=== PATIENT | male | born 1985 | race Caucasian/White ===

== ENCOUNTER 2018-02-23 03:47 | Observation (INO) | payer MEDICAID ==
[~2018-02-23] VITALS: Ht 188 cm; Wt 127.0 kg
[2018-02-23 03:50] VITALS: BP 137/88; PULSE 76; RESP 18; TEMP 98.3; O2SAT 99
[2018-02-23] MEDS ORDERED: ASPIRIN 81 MG CHEW TAB PO ONE (04:15)
[2018-02-23] MEDS ORDERED: SODIUM CHLORIDE 0.9% FLUSH 10 ML FLUSH IVF PRN (04:15)
[2018-02-23] MEDS ORDERED: NITROGLYCERIN 0.4 MG SL 25 TABS/BTL SL ONE (04:15)
[2018-02-23 04:18] VITALS: BP 134/82; PULSE 74; RESP 15; RESP 18; O2SAT 96
[2018-02-23 04:20] VITALS: BP 135/81; PULSE 73; RESP 15; O2SAT 96
--- NOTE | 2018-02-23 04:20 | PD ---
HPI Chief Complaint: Chest Pain Time Seen by Provider: 04:08 Travel History International Travel<30 days: No Contact w/Intl Traveler<30days: No Traveled to known affect area: No History of Present Illness HPI The patient is a 33 year old female who presents to the [facility] emergency department with a history of chest pain that awoke him from sound sleep 8 out of 10 prior to arrival and now is a 5 out of 10. The pain is a cramping sensation in the left side of his chest that is associated with the same pain in his back. He denies having any other radiation of pain. He denies having any nausea or vomiting. He reports that he has had diaphoresis and shortness of breath associated with this. He denies having any cough or congestion. He denies having any indigestion or acid reflux symptoms. He reports a prior history of hypertension, however he has not currently on any medications for this. He denies any known history of hyperlipidemia or diabetes mellitus. He denies having any family history of heart disease. He has a prior history of smoking and quit 2 years ago and now vapes. On review of systems otherwise, the patient denies having any known recent fevers, congestion, neck pain, abdominal pain,diarrhea, urinary symptoms, or neurologic symptoms. [facility] Past Medical History Narrative Medical The patient's past medical history is significant for hypertension Asthma: Yes (CHILDHOOD) Anxiety: Yes Diminished Hearing: No Hypertension: Yes Immunizations Current: Yes Past Surgical History Narrative Surgical The patient's past surgical history is significant for sinus surgery and appendectomy. Appendectomy: Yes Social History Alcohol Use: Yes (rarely) Tobacco Use: Yes (vapes) Substance Use: No Allergies-Medications (Allergen,Severity, Reaction): Coded Allergies: No Known Allergies (Unverified , 02/23/18) Reported Meds & Prescriptions Reported Meds & Active Scripts Active No Active Prescriptions or Reported Medications Review of Systems Except as stated in HPI: all other systems reviewed are Neg General / Constitutional: No: Fever Eyes: No: Visual changes HENT: No: Headaches, Congestion Cardiovascular: Positive: Chest Pain or Discomfort, Diaphoresis, Dyspnea on exertion Respiratory: Positive: Shortness of Breath, No: Cough Gastrointestinal: No: Nausea, Vomiting, Diarrhea, Abdominal Pain, Indigestion, Loss of Appetite Genitourinary: No: Dysuria Musculoskeletal: No: Pain Skin: No Rash Neurologic: No: Weakness Psychiatric: No: Depression Endocrine: No: Polydipsia Hematologic/Lymphatic: No: Easy Bruising Physical Exam Narrative General: The patient is a well-developed well-nourished male in no acute distress. Head and Neck exam: Head is normocephalic atraumatic. Eyes: EOMI, pupils are equal round and reactive to light. Nose: Midline septum with pink mucous membranes Mouth: Dentition unremarkable. Moist mucus membranes. Posterior oropharynx is not erythematous. No tonsillar hypertrophy. Uvula midline. Airway patent. Neck: No palpable lymphadenopathy. No nuchal rigidity. No thyromegaly. Cardiovascular: Regular rate and rhythm without murmurs, gallops, or rubs. No pulse deficit to the extremities on simultaneous auscultation and palpation of his radial artery. Lungs: Clear to auscultation bilaterally. No wheezes, rhonchi, or rales. Abdomen: Soft, without tenderness to palpation in all 4 quadrants of the abdomen. No guarding, rebound, or rigidity. Normal bowel sounds are audible. No tenderness on palpation of McBurney's point. Negative Ramesh sign. Extremities: No clubbing, cyanosis, or edema. 2+ pulses in all 4 extremities. No calf tenderness on palpation. Back: No spinous process tenderness to palpation. No costovertebral angle tenderness to palpation. Neurologic Exam: Grossly nonfocal. Skin Exam: No rash noted. Intact skin that is warm and dry. Data Data Last Documented VS Vital Signs Date Time Temp Pulse Resp B/P (MAP) Pulse Ox O2 Delivery O2 Flow Rate FiO2 02/23/18 05:36 65 17 114/71 (85) 97 Room Air 02/23/18 03:50 98.3 Orders Orders Electrocardiogram (02/23/18 ) Electrocardiogram (02/23/18 04:08) B-Type Natriuretic Peptide (02/23/18 04:08) Ckmb (Isoenzyme) Profile (02/23/18 04:08) Complete Blood Count With Diff (02/23/18 04:08) Comprehensive Metabolic Panel (02/23/18 04:08) D-Dimer (02/23/18 04:08) Magnesium (Mg) (02/23/18 04:08) Prothrombin Time / Inr (Pt) (02/23/18 04:08) Act Partial Throm Time (Ptt) (02/23/18 04:08) Troponin I (02/23/18 04:08) Lipase (02/23/18 04:08) Ecg Monitoring (02/23/18 04:08) Bilateral Bp Monitoring (02/23/18 04:08) Iv Access Insert/Monitor (02/23/18 04:08) Oximetry (02/23/18 04:08) Oxygen Administration (02/23/18 04:08) Aspirin Chew (Aspirin Chew) (02/23/18 04:15) Sodium Chloride 0.9% Flush (Ns Flush) (02/23/18 04:15) Nitroglycerin Sl (Nitrostat Sl) (02/23/18 04:15) Chest, Pa & Lat (02/23/18 04:08) CKMB (02/23/18 04:20) CKMB% (02/23/18 04:20) Admit Order (Ed Use Only) (02/23/18 06:14) Labs Laboratory Tests Test 02/23/18 04:20 White Blood Count 6.3 TH/MM3 Red Blood Count 4.88 MIL/MM3 Hemoglobin 15.8 GM/DL Hematocrit 45.2 % Mean Corpuscular Volume 92.6 FL Mean Corpuscular Hemoglobin 32.3 PG Mean Corpuscular Hemoglobin Concent 34.9 % Red Cell Distribution Width 12.7 % Platelet Count 154 TH/MM3 Mean Platelet Volume 8.9 FL Neutrophils (%) (Auto) 51.2 % Lymphocytes (%) (Auto) 37.5 % Monocytes (%) (Auto) 7.5 % Eosinophils (%) (Auto) 3.2 % Basophils (%) (Auto) 0.6 % Neutrophils # (Auto) 3.2 TH/MM3 Lymphocytes # (Auto) 2.4 TH/MM3 Monocytes # (Auto) 0.5 TH/MM3 Eosinophils # (Auto) 0.2 TH/MM3 Basophils # (Auto) 0.0 TH/MM3 CBC Comment DIFF FINAL Differential Comment Prothrombin Time 9.8 SEC Prothromb Time International Ratio 1.0 RATIO Activated Partial Thromboplast Time 25.0 SEC D-Dimer Quantitative (PE/DVT) 0.20 MG/L FEU Blood Urea Nitrogen 12 MG/DL Creatinine 1.01 MG/DL Random Glucose 88 MG/DL Total Protein 7.0 GM/DL Albumin 3.6 GM/DL Calcium Level 8.5 MG/DL Magnesium Level 2.0 MG/DL Alkaline Phosphatase 70 U/L Aspartate Amino Transf (AST/SGOT) 15 U/L Alanine Aminotransferase (ALT/SGPT) 30 U/L Total Bilirubin 0.6 MG/DL Sodium Level 143 MEQ/L Potassium Level 4.2 MEQ/L Chloride Level 107 MEQ/L Carbon Dioxide Level 30.8 MEQ/L Anion Gap 5 MEQ/L Estimat Glomerular Filtration Rate 86 ML/MIN Total Creatine Kinase 112 U/L Creatine Kinase MB 0.5 NG/ML Troponin I LESS THAN 0.02 NG/ML B-Type Natriuretic Peptide 18 PG/ML Lipase 276 U/L MDM Medical Decision Making Medical Screen Exam Complete: Yes Emergency Medical Condition: Yes Medical Record Reviewed: Yes Interpretation(s) Last Impressions Chest X-Ray 02/23/18 0408 Signed Impressions: Service Date/Time: Friday, February 23, 2018 04:49 - CONCLUSION: No acute disease. Olivier Paniagua MD Differential Diagnosis Acute coronary syndrome, versus pulmonary embolism, versus acid reflux, versus anxiety disorder, versus pneumothorax. Narrative Course During the course of the patient's emergency department visit, the patient's history, examination, and differential diagnosis were reviewed with the patient. The patient was placed on a quality assurance monitor chassis with oximetry and frequent blood pressure monitoring. The patient had IV access obtained and blood work sent for analysis. The patient had a EKG done on arrival that shows a sinus rhythm heart rate of 72, no acute ST segment elevation. QRS duration is 99 ms, QTC 394 ms. The patient was initially provided aspirin 324 mg p.o. 1, nitroglycerin sublingual 1. The patient's laboratory studies were reviewed and remarkable for a CBC that is within normal limits, chemistry is remarkable for a GFR of 86, cardiac enzymes within normal limits, BNP 18, lipase 276, PT PTT within normal limits, d-dimer 0.20 decrease the likelihood of pulmonary embolism in this patient with no other significant risk factors. Radiology studies were reviewed and remarkable for a chest x-ray that shows no acute disease. The patient will be admitted to the chest pain center for rule out serial cardiac enzyme protocol followed by consideration for stress testing. The patient's results were discussed with the patient, including the plan of care. I explained that further testing and/ or monitoring is indicated based on the patient's history, examination, and/ or laboratory findings. Therefore, I recommended admission for additional evaluation. The patient expressed understanding and was agreeable with this plan. The patient was admitted to the hospital in stable condition and sent to a bed under the care of chest pain center. Diagnosis Primary Impression: Chest pain, rule out acute myocardial infarction Admitting Information Admitting Physician Requests: Observation Scripts No Active Prescriptions or Reported Meds Alpa Barrera MD Feb 23, 2018 04:20
[2018-02-23 04:42] LABS: AUTOMATED NEUTROPHIL # 3.2 TH/MM3 (1.8-7.7); BASOPHIL % 0.6 % (0.0-2.0); EOSINOPHIL # 0.2 TH/MM3 (0-0.4); EOSINOPHIL % 3.2 % (0.0-4.0); HEMATOCRIT 45.2 % (39.0-51.0); HEMOGLOBIN 15.8 GM/DL (13.0-17.0); LYMPH % 37.5 % (9.0-44.0); LYMPHOCYTE # 2.4 TH/MM3 (1.0-4.8); MEAN CELL VOLUME 92.6 FL (80.0-100.0); MEAN CORPUSCULAR HEMOGLOBIN 32.3 PG (27.0-34.0); MEAN CORPUSCULAR HGB CONC 34.9 % (32.0-36.0); MEAN PLATELET VOLUME 8.9 FL (7.0-11.0); MONO % 7.5 % (0.0-8.0); MONOCYTE # 0.5 TH/MM3 (0-0.9); NEUT % 51.2 % (16.0-70.0); PLATELET COUNT 154 TH/MM3 (150-450); RED BLOOD COUNT 4.88 MIL/MM3 (4.50-5.90); RED CELL DISTRIBUTION WIDTH 12.7 % (11.6-17.2); WHITE BLOOD COUNT 6.3 TH/MM3 (4.0-11.0)
[2018-02-23 05:00] LABS: ALBUMIN 3.6 GM/DL (3.4-5.0); ALT (GPT) 30 U/L (12-78); AST (GOT) 15 U/L (15-37); BICARBONATE 30.8 MEQ/L (21.0-32.0); BLOOD UREA NITROGEN 12 MG/DL (7-18); CALCIUM 8.5 MG/DL (8.5-10.1); CHLORIDE 107 MEQ/L (98-107); CREATININE 1.01 MG/DL (0.60-1.30); GLOMERULAR FILTRATION RATE 86 ML/MIN (>89); GLUCOSE,RANDOM 88 MG/DL (74-106); SODIUM (NA) 143 MEQ/L (136-145)
[2018-02-23 05:01] LABS: PROTHROMBIN TIME - PATIENT 9.8 SEC (9.8-11.6)
[2018-02-23 05:04] LABS: D-DIMER 0.2 MG/L FEU (0.00-0.50)
[2018-02-23 05:05] LABS: ALKALINE PHOSPHATASE 70 U/L (45-117); TOTAL BILIRUBIN ADULT 0.6 MG/DL (0.2-1.0); TROPONIN I LESS THAN 0.02 NG/ML (0.02-0.05)
--- NOTE | 2018-02-23 05:16 | RADRPT ---
EXAM DATE/TIME: 02/23/2018 04:49 [facility] COMPARISON: No previous studies available for comparison. INDICATIONS : Chest pain and shortness of breath. MEDICAL HISTORY : Asthma. SURGICAL HISTORY : None. ENCOUNTER: Initial ACUITY: 1 day PAIN SCORE: 5/10 LOCATION: Bilateral chest FINDINGS: PA and lateral views of the chest demonstrate diminished lung volumes without evidence of mass, infil trate or effusion. The cardiomediastinal contours are unremarkable. Osseous structures are intact. CONCLUSION: No acute disease. Olivier Paniagua MD on February 23, 2018 at 5:15 Board Certified Radiologist. This report was verified electronically.
[2018-02-23 05:36] VITALS: BP 114/71; PULSE 65; RESP 17; O2SAT 97
[2018-02-23] MEDS ORDERED: ACETAMINOPHEN 500 MG CPLT PO PRN (06:45)
[2018-02-23] MEDS ORDERED: SODIUM CHLORIDE 0.9% FLUSH 10 ML FLUSH IV FLUSH PRN (06:45)
[2018-02-23 08:15] VITALS: BP 135/89; PULSE 68; RESP 16; TEMP 97.8; O2SAT 96
[2018-02-23 08:40] LABS: TROPONIN I LESS THAN 0.02 NG/ML (0.02-0.05)
--- NOTE | 2018-02-23 08:57 | HHI.HP ---
HPI Primary Care Physician No Primary Care Physician Chief Complaint Chest pain History of Present Illness This is a 33-year-old male that presents to ED via private vehicle with complaint of chest discomfort. States that awoke him from his sleep around 3 this morning lasting about 4 hours. Describes a cramping. Was in left side of his chest radiating to left back. Was not short of breath, nauseous, diaphoretic. He has had this before and just assumed it was from sleeping the wrong way. Has never had a cardiac evaluation. Denies recent illness. Denies significant past medical history. Denies family history of CAD. He was a smoker, quit 3 years ago. Review of Systems General: Patient denies fevers, chills, and recent travel. HEENT: Patient denies headache, sore throat, difficulty swallowing. Cardiovascular: Has the chest discomfort as mentioned above. Denies sensation of heart beating rapidly or irregularly. No syncope. Denies diaphoresis. Respiratory: Denies shortness of breath or inspirational chest discomfort. Denies coughing wheezing or hemoptysis. GI: Patient denies nausea, vomiting, diarrhea, abdominal pain, bloody stools. Musculoskeletal: Patient denies joint pain or edema. Denies calf pain or edema. Neurovascular: Patient denies numbness, tingling, weakness in extremities. Denies headache. Endocrine: Denies polyuria and polydipsia. Hematologic: Denies easy bruising. Skin: Denies rash or itching. Past Family Social History Allergies: Coded Allergies: No Known Allergies (Unverified , 02/23/18) Past Medical History Denies hypertension, hyperlipidemia, diabetes, and CAD. Past Surgical History Appendectomy. Reported Medications Reported Meds & Active Scripts Active No Active Prescriptions or Reported Medications Active Ordered Medications Current Medications Medications (Trade) Dose Ordered Sig/Margarito Route Start Time Stop Time Status Last Admin (NS Flush) 2 ml UNSCH PRN IV FLUSH 02/23/18 06:45 (NS Flush) 2 ml BID IV FLUSH 02/23/18 09:00 (Tylenol) 500 mg Q4H PRN PO 02/23/18 06:45 Family History Denies family history of CAD. Social History Quit smoking 3 years ago. Prior to that he smoked 1 pack of cigarettes daily for about 2 years. Physical Exam Vital Signs Vital Signs Date Time Temp Pulse Resp B/P (MAP) Pulse Ox O2 Delivery O2 Flow Rate FiO2 4/9/18 08:15 97.8 68 16 135/89 (104) 96 02/23/18 07:52 02/23/18 05:36 65 17 114/71 (85) 97 Room Air 02/23/18 04:20 73 15 135/81 (99) 96 Room Air 02/23/18 04:18 74 18 134/82 (99) 96 Room Air 02/23/18 04:18 97 Room Air 02/23/18 04:18 15 96 Room Air 02/23/18 03:50 98.3 76 18 137/88 (104) 99 Physical Exam GENERAL: This is a well-nourished, well-developed patient, in no apparent distress. Patient speaks in clear complete sentences. Patient is pleasant. HEENT: Head is atraumatic and normocephalic. Neck is supple without lymphadenopathy and trachea is midline. No JVD or carotid bruits. CARDIOVASCULAR: Regular rate and rhythm without murmurs, gallops, or rubs. RESPIRATORY: Clear to auscultation. Breath sounds equal bilaterally. No wheezes , rales, or rhonchi. Chest wall is nontender. No use of accessory muscles. GASTROINTESTINAL: Abdomen is nontender, nondistended. Abdomen soft. No obvious pulsatile mass or bruit. No CVA tenderness. Strong femoral pulses bilaterally. Normal bowel sounds in all quadrants. MUSCULOSKELETAL: Patient is moving upper and lower extremities freely. No calf tenderness or edema, no Homans sign. Strong pulses in upper and lower extremities. NEUROLOGICAL: Patient is alert and oriented. Cranial nerves 2-12 are grossly intact. No focal deficits and speech is clear. SKIN: No rash and turgor is normal. Laboratory Laboratory Tests Test 02/23/18 04:20 02/23/18 07:45 White Blood Count 6.3 Red Blood Count 4.88 Hemoglobin 15.8 Hematocrit 45.2 Mean Corpuscular Volume 92.6 Mean Corpuscular Hemoglobin 32.3 Mean Corpuscular Hemoglobin Concent 34.9 Red Cell Distribution Width 12.7 Platelet Count 154 Mean Platelet Volume 8.9 Neutrophils (%) (Auto) 51.2 Lymphocytes (%) (Auto) 37.5 Monocytes (%) (Auto) 7.5 Eosinophils (%) (Auto) 3.2 Basophils (%) (Auto) 0.6 Neutrophils # (Auto) 3.2 Lymphocytes # (Auto) 2.4 Monocytes # (Auto) 0.5 Eosinophils # (Auto) 0.2 Basophils # (Auto) 0.0 CBC Comment DIFF FINAL Differential Comment Prothrombin Time 9.8 Prothromb Time International Ratio 1.0 Activated Partial Thromboplast Time 25.0 D-Dimer Quantitative (PE/DVT) 0.20 Blood Urea Nitrogen 12 Creatinine 1.01 Random Glucose 88 Total Protein 7.0 Albumin 3.6 Calcium Level 8.5 Magnesium Level 2.0 Alkaline Phosphatase 70 Aspartate Amino Transf (AST/SGOT) 15 Alanine Aminotransferase (ALT/SGPT) 30 Total Bilirubin 0.6 Sodium Level 143 Potassium Level 4.2 Chloride Level 107 Carbon Dioxide Level 30.8 Anion Gap 5 Estimat Glomerular Filtration Rate 86 Total Creatine Kinase 112 93 Creatine Kinase MB 0.5 Troponin I LESS THAN 0.02 LESS THAN 0.02 B-Type Natriuretic Peptide 18 Lipase 276 Result Diagram: 02/23/1841902/23/18419 Imaging Last 24 hours Impressions Chest X-Ray 02/23/18407 Signed Impressions: Service Date/Time: Friday, February 23, 2018 04:49 - CONCLUSION: No acute disease. Olivier Paniagua MD Course EKG is sinus rhythm without significant ST segment depressions or elevations. Caprini VTE Risk Assessment Caprini VTE Risk Assessment: No/Low Risk (score <= 1) Caprini Risk Assessment Model Point Value = 1 Point Value = 2 Point Value = 3 Point Value = 5 Age 41-60 Minor surgery BMI > 25 kg/m2 Swollen legs Varicose veins or History of unexplained or recurrent spontaneous Oral contraceptives or hormone replacement Sepsis (< 1 month) Serious lung disease, including pneumonia (< 1 month) Abnormal pulmonary function Acute myocardial infarction Congestive heart failure (< 1 month) History of inflammatory bowel disease Medical patient at bed rest Age 61-74 Arthroscopic surgery Major open surgery (> 45 min) Laparoscopic surgery (> 45 min) Malignancy Confined to bed (> 72 hours) Immobilizing plaster cast Central venous access Age >= 75 History of VTE Family history of VTE Factor V Leiden Prothrombin [id number] Lupus anticoagulant Anticardiolipin antibodies Elevated serum homocysteine Heparin-induced thrombocytopenia Other congenital or acquired thrombophilia Stroke (< 1 month) Elective arthroplasty Hip, pelvis, or leg fracture Acute spinal cord injury (< 1 month) Prophylaxis Regimen Total Risk Factor Score Risk Level Prophylaxis Regimen 0-1 Low Early ambulation 2 Moderate Order ONE of the following: *Sequential Compression Device (SCD) *Heparin 5000 units SQ BID 3-4 Higher Order ONE of the following medications: *Heparin 5000 units SQ TID *Enoxaparin/Lovenox 40 mg SQ daily (WT < 150 kg, CrCl > 30 mL/min) *Enoxaparin/Lovenox 30 mg SQ daily (WT < 150 kg, CrCl > 10-29 mL/min) *Enoxaparin/Lovenox 30 mg SQ BID (WT < 150 kg, CrCl > 30 mL/min) AND/OR *Sequential Compression Device (SCD) 5 or more Highest Order ONE of the following medications: *Heparin 5000 units SQ TID (Preferred with Epidurals) *Enoxaparin/Lovenox 40 mg SQ daily (WT < 150 kg, CrCl > 30 mL/min) *Enoxaparin/Lovenox 30 mg SQ daily (WT < 150 kg, CrCl > 10-29 mL/min) *Enoxaparin/Lovenox 30 mg SQ BID (WT < 150 kg, CrCl > 30 mL/min) AND *Sequential Compression Device (SCD) Assessment and Plan Assessment and Plan * Chest pain: Patient has had EKG and troponin. He was seen by Dr. Kolby Bhagat of cardiology in the chest pain center. At this time he will undergo a Damon protocol ETT and be discharged if nonischemic with instructions to follow-up with PCP and return to ED for interval issues. Patient is stable at this time. He is agreeable to this plan. Roosevelt Espinosa Feb 23, 2018 08:56
[2018-02-23] MEDS ORDERED: SODIUM CHLORIDE 0.9% FLUSH 10 ML FLUSH IV FLUSH SCH (09:00)
--- NOTE | 2018-02-23 10:36 | HHI.DCPOC ---
Discharge Care Plan Diagnosis: (1) Chest pain Goals to Promote Your Health * To prevent worsening of your condition and complications * To maintain your health at the optimal level Directions to Meet Your Goals Take your medications as prescribed Follow your dietary instruction Follow activity as directed Keep your appointments as scheduled Take your immunizations and boosters as scheduled If your symptoms worsen call your PCP, if no PCP go to Urgent Care Center or Emergency Room Smoking is Dangerous to Your Health. Avoid second hand smoke Call the 24-hour hour crisis hotline for domestic abuse at Roosevelt Espinosa Feb 23, 2018 10:36
--- NOTE | 2018-02-23 15:39 | EKG ---
Date Performed: 02/23/2018 Time Performed: 04:01:12 PTAGE: 33 years EKG: Sinus rhythm NORMAL ECG NO PREVIOUS TRACING DOCTOR: Kolby Bhagat Interpretating Date/Time 02/23/2018 15:38:17
--- NOTE | 2018-02-23 15:43 | TR ---
Date Performed: 02/23/2018 Time Performed: 10:11:46 DOCTOR: Kolby Bhagat DRUG LIST: CLINICAL HISTORY: CHEST PAIN REASON FOR TEST: REASON FOR ENDING: OBSERVATION: CONCLUSION: CLARENCE PROTOCOL. NO CP. TEST STOPPED AFTER REACHING GOAL HR SECONDARY TO SOB AND LEG FATIGUE.Maximum IC=055 % Max HR Achieved=87.0% Maximum MS=724/80 Total Exercise Time=9:30 COMMENTS: Patient exercised using the Clarence protocol. No electrocardiographic changes were seen to suggest ischemia. Hemodynamic response to exercise was normal. No significant arrhythmia was prese nt.
--- NOTE | 2018-02-23 15:43 | EKG ---
Date Performed: 02/23/2018 Time Performed: 07:34:47 PTAGE: 33 years EKG: Sinus rhythm NORMAL ECG PREVIOUS TRACING : 02/23/2018 04.01 Since previous tracing, no significant change noted DOCTOR: Kolby Bhagat Interpretating Date/Time 02/23/2018 15:41:17
== END 2018-02-23 11:24 | disposition home or self-care (01) ==
LOC: NEPE 03:47 → NEDA 06:16 → NEPHCDU 07:55
DX: R07.89 Other chest pain (principal); M54.9 Dorsalgia, unspecified; R61 Generalized hyperhidrosis; I10 Essential (primary) hypertension; F41.9 Anxiety disorder, unspecified; J45.909 Unspecified asthma, uncomplicated; R06.02 Shortness of breath; Z87.891 Personal history of nicotine dependence
CPT/HCPCS: 71046; 80053; 82550; 82552; 83690; 83735; 83880; 84484; 85025; 85379; 85610; 85730; 93005; 93017; 99285; G0378

== ENCOUNTER 2018-03-22 04:46 | Observation (INO) | payer MEDICAID, OTHER ==
[~2018-03-22] VITALS: Ht 188 cm; Wt 127.0 kg
[2018-03-22 04:50] VITALS: BP 138/86; PULSE 72; RESP 19; TEMP 98.3; O2SAT 100
[2018-03-22 05:12] VITALS: BP_SYST 133; BP_SYST 142; BP_DIAS 102; BP_DIAS 90; PULSE 76; RESP 16; O2SAT 97
[2018-03-22] MEDS ORDERED: ONDANSETRON HCL 4 MG/2 ML VIAL IVP ONE (05:15)
[2018-03-22] MEDS ORDERED: SODIUM CHLORIDE 0.9% FLUSH 10 ML FLUSH IV FLUSH PRN ×2 (05:15→09:00)
[2018-03-22] MEDS ORDERED: HYDROmorphone HCL PF 2 MG/ML VIAL IV PUSH ONE (05:15)
--- NOTE | 2018-03-22 05:20 | PD ---
HPI Chief Complaint: Pain: Acute or Chronic Time Seen by Provider: 05:15 Travel History International Travel<30 days: No Contact w/Intl Traveler<30days: No Traveled to known affect area: No History of Present Illness HPI 33-year-old male presents to the emergency department by private transportation the care of his family for evaluation of abdominal pain chest pain radiating into his back associated with shortness of breath and nausea. Patient states symptoms awaken him from sleep just prior to arrival to the emergency department. Patient complains of bloating and worsening pain. Patient has had no vomiting. Patient's had no recent febrile illness or respiratory illness. Patient has not been on antibiotic. Patient was just seen recently in the hospital 02/22/18 for chest pain evaluated in the chest pain center with a negative stress test. Patient has history of hypertension does not take blood pressure medication. Patient has remote history of tobacco use greater than 3 years ago. Patient rarely drinks alcoholic beverages. Patient did have fatty foods prior to going to bed was boiled peanuts and movie theater or food. Patient is unable to identify exacerbating or alleviating factors. Patient denies known history of peptic ulcer disease gastritis gallbladder disease or pancreatitis. No reported well water ingestion foreign travel or dietary indiscretion. No report of shortness of breath pleuritic chest pain lower extremity pain or swelling or long distance travel protracted bedrest or surgical procedure. [facility] Past Medical History Narrative Medical Hypertension asthma anxiety appendectomy; rare alcohol use e-cigarette use; nursing notes reviewed Asthma: Yes (CHILDHOOD) Anxiety: Yes Heart Rhythm Problems: No Cardiac Catheterization: No Cardiovascular Problems: Yes High Cholesterol: No Congestive Heart Failure: No Diabetes: No Diminished Hearing: No Hypertension: Yes Respiratory: Yes (Asthma) Immunizations Current: Yes Tetanus Vaccination: Unknown Influenza Vaccination: No Past Surgical History Appendectomy: Yes Coronary Artery Bypass Graft: No Other Surgery: Yes (Sinus surg) Social History Alcohol Use: Yes (rarely) Tobacco Use: Yes (vapes) Substance Use: No Allergies-Medications (Allergen,Severity, Reaction): Coded Allergies: No Known Allergies (Unverified , 02/23/18) Reported Meds & Prescriptions Reported Meds & Active Scripts Active No Active Prescriptions or Reported Medications Review of Systems Except as stated in HPI: all other systems reviewed are Neg Physical Exam Narrative GENERAL: Well-developed well-nourished male no acute distress no respiratory distress SKIN: Warm and dry. HEAD: Normocephalic. EYES: No scleral icterus. No injection or drainage. NECK: Supple, trachea midline. No JVD or lymphadenopathy. CARDIOVASCULAR: Regular rate and rhythm without murmurs, gallops, or rubs. RESPIRATORY: Breath sounds equal bilaterally. No accessory muscle use. GASTROINTESTINAL: Abdomen soft, reproducible right upper quadrant and epigastric tenderness to palpation without guarding or rebound, no clinical Ramesh sign, nondistended. MUSCULOSKELETAL: No cyanosis, or edema. BACK: Nontender without obvious deformity. No CVA tenderness. Data Data Last Documented VS Vital Signs Date Time Temp Pulse Resp B/P (MAP) Pulse Ox O2 Delivery O2 Flow Rate FiO2 03/22/18 05:12 76 16 142/102 (115) 97 Room Air 133/90 (104) 03/22/18 04:50 98.3 Orders Orders Complete Blood Count With Diff (03/22/18 05:15) Comprehensive Metabolic Panel (03/22/18 05:15) Lipase (03/22/18 05:15) Urinalysis - C+S If Indicated (03/22/18 05:15) Ct Abd/Pel W Iv Contrast(Rout) (03/22/18 05:15) Iv Access Insert/Monitor (03/22/18 05:15) Ecg Monitoring (03/22/18 05:15) Oximetry (03/22/18 05:15) Ondansetron Inj (Zofran Inj) (03/22/18 05:15) Sodium Chloride 0.9% Flush (Ns Flush) (03/22/18 05:15) Electrocardiogram (03/22/18 05:15) Chest, Single Ap (03/22/18 05:15) Troponin I (03/22/18 05:15) Hydromorphone Pf Inj (Dilaudid Pf Inj) (03/22/18 05:15) MDM Medical Decision Making Medical Screen Exam Complete: Yes Emergency Medical Condition: Yes Medical Record Reviewed: Yes Interpretation(s) EKG normal sinus rhythm rate [address] elevation injury pattern or ectopy noted Differential Diagnosis Chest pain abdominal pain biliary colic pancreatitis atypical chest pain ACS OR Narrative Course Patient placed on cardiac catheterization technician and pulse oximeter; IV access obtained specimens collected and sent for resulting imaging studies ordered along with EKG and lab work patient administered Zofran 4 mg IV and Dilaudid 0.5 mg IV Scripts No Active Prescriptions or Reported Meds Yesica Ervin MD March 22, 2018 05:20
[2018-03-22 05:32] VITALS: O2SAT 100
[2018-03-22 05:46] LABS: AUTOMATED NEUTROPHIL # 3.6 TH/MM3 (1.8-7.7); BASOPHIL % 0.6 % (0.0-2.0); EOSINOPHIL # 0.1 TH/MM3 (0-0.4); EOSINOPHIL % 1.8 % (0.0-4.0); HEMOGLOBIN 15.8 GM/DL (13.0-17.0); LYMPH % 26.9 % (9.0-44.0); LYMPHOCYTE # 1.5 TH/MM3 (1.0-4.8); MEAN CELL VOLUME 92.9 FL (80.0-100.0); MEAN CORPUSCULAR HEMOGLOBIN 31.9 PG (27.0-34.0); MEAN CORPUSCULAR HGB CONC 34.3 % (32.0-36.0); MEAN PLATELET VOLUME 9.1 FL (7.0-11.0); MONO % 7.3 % (0.0-8.0); MONOCYTE # 0.4 TH/MM3 (0-0.9); NEUT % 63.4 % (16.0-70.0); PLATELET COUNT 161 TH/MM3 (150-450); RED BLOOD COUNT 4.95 MIL/MM3 (4.50-5.90); RED CELL DISTRIBUTION WIDTH 12.9 % (11.6-17.2); WHITE BLOOD COUNT 5.7 TH/MM3 (4.0-11.0)
[2018-03-22 05:58] LABS: ALBUMIN 3.9 GM/DL (3.4-5.0); AST (GOT) 10 U/L (15-37); BICARBONATE 25.4 MEQ/L (21.0-32.0); BLOOD UREA NITROGEN 12 MG/DL (7-18); CALCIUM 8.8 MG/DL (8.5-10.1); CHLORIDE 105 MEQ/L (98-107); CREATININE 0.94 MG/DL (0.60-1.30); GLOMERULAR FILTRATION RATE 93 ML/MIN (>89); GLUCOSE,RANDOM 89 MG/DL (74-106); SODIUM (NA) 138 MEQ/L (136-145)
[2018-03-22 05:59] LABS: ALT (GPT) 29 U/L (12-78)
[2018-03-22 06:01] LABS: ALKALINE PHOSPHATASE 65 U/L (45-117); TOTAL BILIRUBIN ADULT 0.7 MG/DL (0.2-1.0); TOTAL PROTEIN 6.8 GM/DL (6.4-8.2); TROPONIN I LESS THAN 0.02 NG/ML (0.02-0.05)
--- NOTE | 2018-03-22 06:28 | RADRPT ---
EXAM DATE/TIME: 03/22/2018 05:17 [facility] COMPARISON: CHEST PA & LAT, February 23, 2018, 4:49. INDICATIONS : Chest pain. MEDICAL HISTORY : Hypertension. SURGICAL HISTORY : None. ENCOUNTER: Initial ACUITY: 1 day PAIN SCORE: 6/10 LOCATION: Bilateral chest FINDINGS: Slight linear parenchymal opacity at the left base appears stable and may be scarring or atelectasis. Right lung is grossly clear. No effusion suspected. Cardiac contours are stable and satisfactory. CONCLUSION: Stable chest appearance Steve Telles MD on March 22, 2018 at 6:25 Board Certified Radiologist. This report was verified electronically.
[2018-03-22] MEDS ORDERED: IOHEXOL 350 MG/ML 10 ML VIAL (for RAD DIAG) IVCONTRAST ONE (06:38)
--- NOTE | 2018-03-22 06:55 | RADRPT ---
EXAM DATE/TIME: 03/22/2018 06:35 [facility] COMPARISON: No previous studies available for comparison. INDICATIONS : Abdominal pain. IV CONTRAST: 76 cc Omnipaque 350 (iohexol) IV ORAL CONTRAST: No oral contrast ingested. RADIATION DOSE: 18.98 CTDIvol (mGy) MEDICAL HISTORY : Cardiovascular disease. Hypertension. Asthma SURGICAL HISTORY : Appendectomy. ENCOUNTER: Initial ACUITY: 1 day PAIN SCALE: 6/10 LOCATION: abdomen TECHNIQUE: Volumetric scanning of the abdomen and pelvis was performed. Using automated exposure control and ad justment of the mA and/or kV according to patient size, radiation dose was kept as low as reasonably achievable to obtain optimal diagnostic quality images. DICOM format image data is available electro nically for review and comparison. FINDINGS: LOWER LUNGS: Mild posterior lung base atelectasis. LIVER: Homogeneous density without lesion. There is no dilation of the biliary tree. Mild gallbladder wall thickening. Small oblong radiodensity in the gallbladder neck region could be stone.. SPLEEN: Normal size without lesion. PANCREAS: Within normal limits. KIDNEYS: Normal in size and shape. There is no mass, stone or hydronephrosis. ADRENAL GLANDS: Within normal limits. VASCULAR: There is no aortic aneurysm. BOWEL/MESENTERY: The stomach, small bowel, and colon demonstrate no acute abnormality. There is no free intraperitone al air or fluid. ABDOMINAL WALL: Within normal limits. RETROPERITONEUM: There is no lymphadenopathy. BLADDER: No wall thickening or mass. REPRODUCTIVE: Within normal limits. INGUINAL: There is no lymphadenopathy or hernia. MUSCULOSKELETAL: Within normal limits for patient age. CONCLUSION: Abnormal gallbladder appearance. Otherwise no definite acute CT findings. Steve Telles MD on March 22, 2018 at 6:50 Board Certified Radiologist. This report was verified electronically.
--- NOTE | 2018-03-22 08:59 | HHI.HP ---
[facility] No Primary Care Physician Admission Diagnosis Acute cholecysitis Diagnoses: Chief Complaint: Abdominal pain. Travel History International Travel<30 Days: No Contact w/Intl Traveler <30 Da: No Traveled to Known Affected Are: No History of Present Illness Mr. Baldwin is a pleasant 33 year old male with a history of appendectomy who presented to the ED on 03/22/2018 due to upper quadrants abdominal pain with radiation to the left scapular area. He woke up around 3: 30AM today with this pain. He had nausea but no vomiting. No fever, chills. He had an episode within last 3 weeks. He denies any changes in bowel or bladder habits. Denies any chest pain,shortness of breath, cough. Review of Systems Except as stated in HPI: all other systems reviewed are Neg Past Family Social History Past Medical History No significant medical history. Past Surgical History Appendectomy Reported Medications Does not take any medications on a regular basis. Allergies: Coded Allergies: No Known Allergies (Unverified , 02/23/18) Family History Mother - DM, heart disease. Social History Denies using tobacco or illicit drugs. Drinks alcohol socially. Physical Exam Vital Signs Vital Signs Date Time Temp Pulse Resp B/P (MAP) Pulse Ox O2 Delivery O2 Flow Rate FiO2 03/22/18 05:32 100 Room Air 03/22/18 05:12 76 16 142/102 (115) 97 Room Air 133/90 (104) 03/22/18 04:50 98.3 72 19 138/86 (103) 100 Physical Exam GENERAL: This is a well-nourished, well-developed patient, in no apparent distress. SKIN: No rashes, ecchymoses or lesions. Warm and dry. HEAD: Atraumatic. Normocephalic. No temporal or scalp tenderness. EYES: Pupils equal round and reactive. No injection or drainage. ENT: Nose without bleeding, purulent drainage or septal hematoma. Airway patent. NECK: Trachea midline. No lymphadenopathy. Supple, nontender, no meningeal signs. CARDIOVASCULAR: Regular rate and rhythm without murmurs, gallops, or rubs. No JVD. RESPIRATORY: Clear to auscultation. Breath sounds equal bilaterally. No wheezes , rales, or rhonchi. GASTROINTESTINAL: Abdomen soft, non-tender, nondistended. No guarding. MUSCULOSKELETAL: Extremities without clubbing, cyanosis, or edema. NEUROLOGICAL: Awake and alert. Cranial nerves II through XII intact. No focal neurological deficits. Normal speech. Laboratory Laboratory Tests Test 03/22/18 05:20 White Blood Count 5.7 Red Blood Count 4.95 Hemoglobin 15.8 Hematocrit 46.0 Mean Corpuscular Volume 92.9 Mean Corpuscular Hemoglobin 31.9 Mean Corpuscular Hemoglobin Concent 34.3 Red Cell Distribution Width 12.9 Platelet Count 161 Mean Platelet Volume 9.1 Neutrophils (%) (Auto) 63.4 Lymphocytes (%) (Auto) 26.9 Monocytes (%) (Auto) 7.3 Eosinophils (%) (Auto) 1.8 Basophils (%) (Auto) 0.6 Neutrophils # (Auto) 3.6 Lymphocytes # (Auto) 1.5 Monocytes # (Auto) 0.4 Eosinophils # (Auto) 0.1 Basophils # (Auto) 0.0 CBC Comment DIFF FINAL Differential Comment Blood Urea Nitrogen 12 Creatinine 0.94 Random Glucose 89 Total Protein 6.8 Albumin 3.9 Calcium Level 8.8 Alkaline Phosphatase 65 Aspartate Amino Transf (AST/SGOT) 10 Alanine Aminotransferase (ALT/SGPT) 29 Total Bilirubin 0.7 Sodium Level 138 Potassium Level 3.9 Chloride Level 105 Carbon Dioxide Level 25.4 Anion Gap 8 Estimat Glomerular Filtration Rate 93 Troponin I LESS THAN 0.02 Lipase 258 Result Diagram: 03/22/1851903/22/18519 Imaging Last Impressions Chest X-Ray 03/22/18514 Signed Impressions: Service Date/Time: Thursday, March 22, 2018 05:17 - CONCLUSION: Stable chest appearance Steve Telles MD Abdomen/Pelvis CT 03/22/18514 Signed Impressions: Service Date/Time: Thursday, March 22, 2018 06:35 - CONCLUSION: Abnormal gallbladder appearance. Otherwise no definite acute CT findings. MD Tacho Van VTE Risk Assessment Caprini VTE Risk Assessment: No/Low Risk (score <= 1) Caprini Risk Assessment Model Point Value = 1 Point Value = 2 Point Value = 3 Point Value = 5 Age 41-60 Minor surgery BMI > 25 kg/m2 Swollen legs Varicose veins or History of unexplained or recurrent spontaneous Oral contraceptives or hormone replacement Sepsis (< 1 month) Serious lung disease, including pneumonia (< 1 month) Abnormal pulmonary function Acute myocardial infarction Congestive heart failure (< 1 month) History of inflammatory bowel disease Medical patient at bed rest Age 61-74 Arthroscopic surgery Major open surgery (> 45 min) Laparoscopic surgery (> 45 min) Malignancy Confined to bed (> 72 hours) Immobilizing plaster cast Central venous access Age >= 75 History of VTE Family history of VTE Factor V Leiden Prothrombin [id number] Lupus anticoagulant Anticardiolipin antibodies Elevated serum homocysteine Heparin-induced thrombocytopenia Other congenital or acquired thrombophilia Stroke (< 1 month) Elective arthroplasty Hip, pelvis, or leg fracture Acute spinal cord injury (< 1 month) Prophylaxis Regimen Total Risk Factor Score Risk Level Prophylaxis Regimen 0-1 Low Early ambulation 2 Moderate Order ONE of the following: *Sequential Compression Device (SCD) *Heparin 5000 units SQ BID 3-4 Higher Order ONE of the following medications: *Heparin 5000 units SQ TID *Enoxaparin/Lovenox 40 mg SQ daily (WT < 150 kg, CrCl > 30 mL/min) *Enoxaparin/Lovenox 30 mg SQ daily (WT < 150 kg, CrCl > 10-29 mL/min) *Enoxaparin/Lovenox 30 mg SQ BID (WT < 150 kg, CrCl > 30 mL/min) AND/OR *Sequential Compression Device (SCD) 5 or more Highest Order ONE of the following medications: *Heparin 5000 units SQ TID (Preferred with Epidurals) *Enoxaparin/Lovenox 40 mg SQ daily (WT < 150 kg, CrCl > 30 mL/min) *Enoxaparin/Lovenox 30 mg SQ daily (WT < 150 kg, CrCl > 10-29 mL/min) *Enoxaparin/Lovenox 30 mg SQ BID (WT < 150 kg, CrCl > 30 mL/min) AND *Sequential Compression Device (SCD) Assessment and Plan Assessment and Plan Patient presented to the ED with upper abdominal pain with radiation to the left scapular area. CT abd/pelvis shows gallbladder wall thickening, possible stone as well. General surgery consulted. Acute cholecystitis - No elevation in WBC, no fever. - Will give one dose of 2g of Ceftriaxone. - Discussed with Dr. Shore after he evaluated patient. Patient is not interested to undergo surgery at this point. - Since overt systemic symptoms are not present, patient will be discharged home. He is advised to return to the ED if he has fever, chills and abdominal pain. Otherwise, he can follow up with Dr. Shore as needed. - Will give tramadol for pain and Augmentin for 5 days. Full code. Discharge patient to home Condition on discharge: Improved Regular Diet as tolerated Ad Josey activity Rx written: Tramadol Augmentin Follow-up with primary care physician PRN, General surgery PRN in 1-2 weeks. Maris Rai DO March 22, 2018 08:59
[2018-03-22] MEDS ORDERED: HYDROmorphone HCL PF 0.5 MG/0.5 ML SYRINGE IV PUSH PRN (09:00)
[2018-03-22] MEDS ORDERED: BISACODYL 10 MG SUPP RECTAL PRN (09:00)
[2018-03-22] MEDS ORDERED: MAGNESIUM HYDROXIDE SUSP 30 ML CUP PO PRN (09:00)
[2018-03-22] MEDS ORDERED: SODIUM CHLORIDE 0.9% FLUSH 10 ML FLUSH IV FLUSH SCH (09:00)
[2018-03-22] MEDS ORDERED: ONDANSETRON HCL 4 MG/2 ML VIAL IVP PRN (09:00)
[2018-03-22] MEDS ORDERED: LACTULOSE SYRUP 20 GM/30 ML CUP PO PRN (09:00)
[2018-03-22] MEDS ORDERED: SENNOSIDES 8.6 MG TAB PO PRN (09:00)
[2018-03-22] MEDS ORDERED: NALOXONE HCL 0.4 MG/ML AMP IV PUSH PRN (09:00)
[2018-03-22] MEDS ORDERED: ACETAMINOPHEN 325 MG TAB PO PRN (09:00)
[2018-03-22 09:57] VITALS: BP 135/79; PULSE 72; RESP 16; O2SAT 100
[2018-03-22] MEDS ORDERED: cefTRIAXone INJ 2,000 MG in SODIUM CHLORIDE 0.9% INJ 100 ML IV SCH (10:00)
[2018-03-22] MEDS ORDERED: AUGM875T3 PO ×2 (10:18→10:28)
[2018-03-22] MEDS ORDERED: TRAM50TA PO ×2 (10:18→10:28)
--- NOTE | 2018-03-22 12:09 | EKG ---
Date Performed: 03/22/2018 Time Performed: 05:30:41 PTAGE: 33 years EKG: Sinus rhythm NORMAL ECG PREVIOUS TRACING : 02/23/2018 07.34 DOCTOR: Janak Reyna Interpretating Date/Time 03/22/2018 12:07:07
--- NOTE | 2018-03-22 12:37 | MB ---
cc: Boston Shore MD DATE: 03/22/2018 CHIEF COMPLAINT: Abdominal pain. HISTORY OF PRESENT ILLNESS: The patient is a 33-year-old male who presents with acute onset of abdominal pain. The patient states that the pain woke him up from sleep last night and was pretty significant, a little more concentration on the left, but complains of bilateral upper quadrant band-like abdominal pain. He states the pain initially was a 9 out of 10, is currently a 1 out of 10. It radiated across both quadrants, worse with movement, better with lying still. He denies any significant associated nausea or vomiting or fevers or chills. He does note a similar episode back in February where he had a chest pain workup which was negative. He stated the pain resolved medically and then did relatively well until last night. He had further workup including CT scan showing mild thickening of gallbladder wall with gallstones. PAST MEDICAL HISTORY: Childhood asthma. PAST SURGICAL HISTORY: Appendectomy, sinus surgery. SOCIAL HISTORY: Vape. Denies tobacco. Occasional ETOH. Denies IVDA. ALLERGIES: No known drug allergies MEDICATIONS: See EMR. FAMILY HISTORY: Denies diabetes, hypertension. REVIEW OF SYSTEMS: GENERAL: Denies fever or chills. HEENT: Denies eye pain or ear pain. NECK: Denies swelling or pain. LUNGS: Denies cough, wheeze. HEART: Denies palpitation or chest pain. ABDOMEN: Complains of bilateral upper quadrant abdominal pain going to the left shoulder blade. GENITOURINARY: Denies dysuria, hematuria. ENDOCRINE: Denies polyuria or polydipsia. INTEGUMENT: Denies masses or lesions. PSYCHIATRIC: Denies change in mood or sensorium. PHYSICAL EXAMINATION: GENERAL: The patient in no acute distress. VITAL SIGNS: Temperature 98.3, pulse 72, respirations 19, blood pressure 142/79, saturation 100%. HEENT: Pupils equal, round, reactive. No scleral icterus. NECK: Supple. Trachea midline. CHEST: Lungs clear to auscultation bilateral. Bilateral expansion. HEART: S1, S2. Regular rhythm. ABDOMEN: Soft, minimal tenderness to palpation bilateral upper quadrants. No rebound, no guarding and no McBurney sign. Well-healed umbilical surgical scar and laparoscopic appendectomy scars. EXTREMITIES: Warm and well perfused. NEUROLOGIC: GCS 15. 5/5 motor in all extremities. INTEGUMENT: No mass or lesion. PSYCHE: Good insight. Good judgment. LABORATORY DATA: WBC 5.7, hemoglobin 15.8, hematocrit 46, platelets 161. Sodium 138, potassium 3.9, chloride 105, CO2 25, BUN is 12, creatinine 0.9, AST 10, ALT 29, alkaline phosphatase 65, T bilirubin 0.7. Lipase is 258. CT reviewed by myself showing minimal thickening of the gallbladder wall, gallbladder stone present. No appearance of other abnormality. ASSESSMENT AND PLAN: The patient is a 33-year-old male, concern for symptomatic cholelithiasis. After full clinical radiologic and laboratory workup, the patient with above-named issues including a concern for symptomatic cholelithiasis. Discussed with the patient regarding possible surgical option of laparoscopic cholecystectomy versus observation. At this point, the patient does elect to observe this and consider a p.o. challenge and possible antibiotic medical treatment. I discussed with the patient that he does not appear acutely ill. His WBC is normal. He has no fevers and low incidence of acute infection; however, likely inflammation and again more of a symptomatic cholelithiasis could be considered operative management as an outpatient. He agreed with this and would like to again defer surgery at this time. MD YOHANNES [place]/PASCALE , 11:39 AM , 12:35 PM MTDMery
== END 2018-03-22 10:41 | disposition home or self-care (01) ==
LOC: NEPC 04:46 → NEDA 08:45
PROVIDERS: ADMIT Hospitalist; ATTEND Hospitalist
DX: K81.0 Acute cholecystitis (principal); R07.9 Chest pain, unspecified; R06.02 Shortness of breath; R11.0 Nausea; R14.0 Abdominal distension (gaseous); I10 Essential (primary) hypertension; J45.909 Unspecified asthma, uncomplicated; F41.9 Anxiety disorder, unspecified; F17.210 Nicotine dependence, cigarettes, uncomplicated; R10.10 Upper abdominal pain, unspecified; J98.11 Atelectasis
CPT/HCPCS: 71045; 74177; 80053; 83690; 84484; 85025; 93005; 96365; 96375; 99285; G0378; J0696; J1170; J2405; Q9967